=== PATIENT | male | born 2000 | race Caucasian/White ===

== ENCOUNTER 2024-05-23 16:59 | Emergency (ER) | payer SELFPAY ==
--- NOTE | 2024-05-23 17:07 | ERPHSYRPT ---
- History of Present Illness Time Seen by Provider: 05/23/24 17:06 Historian: patient, family Exam Limitations: no limitations Physician History: This is an 23-year-old overweight white male patient who drank a different type of energy drink this morning and later in the morning/early afternoon he began feeling palpitations. He states it is was not chest pain but more of heart racing. He has no known heart disease. He is not short of breath. He has no chest pain now. He has no abdominal pain. He said no nausea vomiting, cough or fever symptoms. Timing/Duration: today Activities at Onset: none Severity of Pain-Max: none Severity of Pain-Current: none Modifying Factors: Improves With: nothing Associated Symptoms: denies symptoms Prior Chest Pain/Cardiac Workup: no prior chest pain Nitro Today/Relief: no nitro taken today Aspirin Treatment Today: 81 mg x 4, provided by ED Allergies/Adverse Reactions: amoxicillin Allergy (Verified 05/23/24 17:03) Home Medications: No Reportable Medications [No Reported Medications] 05/23/24 [History] Travel Risk - International Travel Have you traveled outside of the country in past 3 weeks: No - Emerging Infectious Disease Are you exhibiting symptoms associated with any current EIDs: No - Review of Systems Constitutional: No Symptoms Eyes: No Symptoms Ears, Nose, & Throat: No Symptoms Respiratory: No Symptoms Cardiac: Palpitations, No Chest Pain Abdominal/Gastrointestinal: No Symptoms Genitourinary Symptoms: No Symptoms Musculoskeletal: No Symptoms Skin: No Symptoms Neurological: No Symptoms Psychological: No Symptoms Endocrine: No Symptoms Hematologic/Lymphatic: No Symptoms - Past Medical History Pertinent Past Medical History: No - Past Surgical History Past Surgical History: No - Nursing Vital Signs Nursing Vital Signs: Initial Vital Signs Pulse Rate 85 05/23/24 17:00 Respiratory Rate 19 05/23/24 17:00 Blood Pressure 135/75 05/23/24 17:00 O2 Sat by Pulse Oximetry 96 05/23/24 17:00 Pain Scale Pain Intensity 3 - Physical Exam General Appearance: no apparent distress, alert, anxiety, obese Eye Exam: PERRL/EOMI, eyes nml inspection Ears, Nose, Throat Exam: normal ENT inspection, moist mucous membranes Neck Exam: normal inspection, non-tender, supple, full range of motion Respiratory Exam: normal breath sounds, lungs clear, airway intact, No chest tenderness, No respiratory distress Cardiovascular Exam: regular rate/rhythm, normal heart sounds Gastrointestinal/Abdomen Exam: soft, normal bowel sounds, No tenderness Rectal Exam: not done Back Exam: normal inspection, normal range of motion, No CVA tenderness Extremity Exam: normal inspection, normal range of motion, pelvis stable Neurologic Exam: alert, oriented x 3, cooperative, 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 No comparison EKG) Ordered Tests: Active Orders 24 hr Category Date Time Status Urology Nurse STAT Care 05/23/24 17:08 Active IV Insertion STAT Care 05/23/24 17:07 Active Pulse Oximetry (ED) STAT Care 05/23/24 17:07 Active CHEST 1 VIEW (PORTABLE) Stat Exams 05/23/24 17:07 Taken CBC W DIFF Stat Lab 05/23/24 17:25 Completed CMP Stat Lab 05/23/24 17:25 Completed D-DIMER QUANTITATIVE Stat Lab 05/23/24 17:25 Completed PROTIME WITH INR Stat Lab 05/23/24 17:25 Completed TROPONIN Q4H Lab 05/23/24 17:25 Completed TROPONIN Q4H Lab 05/23/24 21:15 Ordered TROPONIN Q4H Lab 05/24/24 01:15 Ordered Medication Summary Discontinued Medications Generic Name Dose Route Start Last Admin Trade Name Ashwini PRN Reason Stop Dose Admin Aspirin 324 mg 05/23/24 17:07 05/23/24 17:19 Aspirin 81 Mg Tab.Chew PO 05/23/24 17:08 324 mg STAT ONE Administration Aspirin Confirm 05/23/24 17:15 Aspirin 81 Mg Tab.Chew Administered 05/23/24 17:16 Dose 324 mg .ROUTE .STK-MED ONE Lab/Rad Data: Laboratory Result Diagrams 05/23/24 17:25 05/23/24 17:25 Laboratory Results 05/23/24 05/23/24 05/23/24 Range/Units 17:25 17:25 17:25 WBC (4.23-9.07) x10^3/uL RBC (4.63-6.08) x10^6/uL Hgb (13.7-17.5) g/dL Hct (40.1-51.0) % MCV (79.0-92.2) fL MCH (25.7-32.2) pg MCHC (32.3-36.5) g/dL RDW (11.6-14.4) % Plt Count (163-337) x10^3/uL MPV (9.4-12.4) fL Gran % (34.0-67.9) % Immature Gran % (Auto) (0.001-0.429) % Nucleat RBC Rel Count (0.00-0.2) % Eos # (Auto) (0.04-0.54) x10^3/uL Immature Gran # (Auto) (0.001-0.031) x10^3u/L Absolute Lymphs (auto) (1.32-3.57) x10^3/uL Absolute Monos (auto) (0.30-0.82) x10^3/uL Absolute Nucleated RBC (0.00-0.012) x10^3u/L Lymphocytes % (21.8-53.1) % Monocytes % (5.3-12.2) % Eosinophils % (0.8-7.0) % Basophils % (0.2-1.2) % Absolute Granulocytes (1.78-5.38) x10^3/uL Basophils # (0.01-0.08) x10^3/uL PT 10.9 (9.4-12.5) SECONDS INR 1.00 (0.8-3.0) D-Dimer < 0.19 (0.0-0.50) mg/L Sodium 140 (135-145) mmol/L Potassium 4.5 (3.5-5.1) mmol/L Chloride 107 (98-107) mmol/L Carbon Dioxide 21 L (22-30) mmol/L Anion Gap 16.1 H (5-15) MEQ/L BUN 10 (9-20) mg/dL Creatinine 0.90 (0.66-1.25) mg/dL Estimated GFR 122.3 ML/MIN Glucose 126 H (74-106) mg/dL Calcium 10.1 (8.4-10.2) mg/dL Total Bilirubin 0.50 (0.2-1.3) mg/dL AST 45 (17-59) U/L ALT 80 H (0-50) U/L Alkaline Phosphatase 90 (38-126) U/L Troponin I < 0.012 (0.000-0.033) ng/mL Serum Total Protein 8.2 (6.3-8.2) g/dL Albumin 4.8 (3.5-5.0) g/dL 05/23/24 Range/Units 17:25 WBC 9.2 H (4.23-9.07) x10^3/uL RBC 5.65 (4.63-6.08) x10^6/uL Hgb 16.4 (13.7-17.5) g/dL Hct 48.1 (40.1-51.0) % MCV 85.1 (79.0-92.2) fL MCH 29.0 (25.7-32.2) pg MCHC 34.1 (32.3-36.5) g/dL RDW 12.1 (11.6-14.4) % Plt Count 343 H (163-337) x10^3/uL MPV 10.3 (9.4-12.4) fL Gran % 60.1 (34.0-67.9) % Immature Gran % (Auto) 0.3 (0.001-0.429) % Nucleat RBC Rel Count 0.0 (0.00-0.2) % Eos # (Auto) 0.10 (0.04-0.54) x10^3/uL Immature Gran # (Auto) 0.03 (0.001-0.031) x10^3u/L Absolute Lymphs (auto) 2.89 (1.32-3.57) x10^3/uL Absolute Monos (auto) 0.58 (0.30-0.82) x10^3/uL Absolute Nucleated RBC 0.00 (0.00-0.012) x10^3u/L Lymphocytes % 31.4 (21.8-53.1) % Monocytes % 6.3 (5.3-12.2) % Eosinophils % 1.1 (0.8-7.0) % Basophils % 0.8 (0.2-1.2) % Absolute Granulocytes 5.54 H (1.78-5.38) x10^3/uL Basophils # 0.07 (0.01-0.08) x10^3/uL PT (9.4-12.5) SECONDS INR (0.8-3.0) D-Dimer (0.0-0.50) mg/L Sodium (135-145) mmol/L Potassium (3.5-5.1) mmol/L Chloride (98-107) mmol/L Carbon Dioxide (22-30) mmol/L Anion Gap (5-15) MEQ/L BUN (9-20) mg/dL Creatinine (0.66-1.25) mg/dL Estimated GFR ML/MIN Glucose (74-106) mg/dL Calcium (8.4-10.2) mg/dL Total Bilirubin (0.2-1.3) mg/dL AST (17-59) U/L ALT (0-50) U/L Alkaline Phosphatase (38-126) U/L Troponin I (0.000-0.033) ng/mL Serum Total Protein (6.3-8.2) g/dL Albumin (3.5-5.0) g/dL - Progress Progress: improved, re-examined Air Movement: good Progress Note: 05/23/24 18:21 My medical decision making and the assignment of moderate complexity to this patient's medical issue today is based on review of the patient's past medical history, review of the patient's medication list, review of patient drug allergy list, history present illness and physical exam findings. The workup in this patient includes CBC, CMP, troponin level, D-dimer level, chest x-ray, magnesium level, twelve-lead EKG Differential diagnosis includes but is not limited to anxiety about health, musculoskeletal pain, pneumonia, caffeinated drinks side effect, pulmonary embolus, arrhythmia, electrolyte abnormalities Blood Culture(s) Obtained: No Antibiotics given: No Counseled pt/family regarding: lab results, diagnosis, need for follow-up, rad results Medical Desision Making - Diagnostic Testing Diagnostic test were ordered, analyzed, and reviewed by me: Yes Radiological Interpretation: Interpreted by me - Risk of complications Minimal Risk: Minimal risk of morbidity - Departure Departure Disposition: Home Clinical Impression: Anxiety about health, Palpitations, Caffeine adverse reaction Condition: Stable Critical Care Time: No Additional Instructions: Avoid caffeinated products. Drink plenty of clear liquids. Call your primary care provider on 05/26/2024 to make arrangements for further evaluation management and for an evaluation in 3 to 5 days.
[2024-05-23 17:12] VITALS: TEMP 97
[2024-05-23] MEDS ORDERED: BABY ASPIRIN 81 MG CHEW ONE (17:15)
[2024-05-23] MEDS: BABY ASPIRIN 81 MG CHEW PO ONE (17:19)
[2024-05-23 17:32] LABS: Absolute Neutrophil Ct (ANC) 5.54 x10^3/uL (1.78-5.38); BASOPHIL % 0.8 % (0.2-1.2); Basophil (Absolute #) 0.07 x10^3/uL (0.01-0.08); Eosinophil % 1.1 % (0.8-7.0); Hematocrit 48.1 % (40.1-51.0); Hemoglobin 16.4 g/dL (13.7-17.5); IMMATURE GRAN # 0.03 x10^3u/L (0.001-0.031); IMMATURE GRAN % 0.3 % (0.001-0.429); Lymphocyte (Absolute #) 2.89 x10^3/uL (1.32-3.57); Lymphocytes % 31.4 % (21.8-53.1); Mean Cell Volume 85.1 fL (79.0-92.2); Mean Corpuscular Hgb Concent. 34.1 g/dL (32.3-36.5); Mean Platelet Volume 10.3 fL (9.4-12.4); Monocyte (Absolute #) 0.58 x10^3/uL (0.30-0.82); Monocytes % 6.3 % (5.3-12.2); Neutrophil % 60.1 % (34.0-67.9); Platelet Count 343 x10^3/uL (163-337); Red Blood Count 5.65 x10^6/uL (4.63-6.08); Red Cell Distribution Width 12.1 % (11.6-14.4); White Blood Count 9.2 x10^3/uL (4.23-9.07)
[2024-05-23 17:53] LABS: D-DIMER QUANTITATIVE < 0.19 mg/L (0.0-0.50); PROTIME 10.9 SECONDS (9.4-12.5)
[2024-05-23 17:55] LABS: ALBUMIN 4.8 g/dL (3.5-5.0); ANION GAP 16.1 MEQ/L (5-15); BILIRUBIN,TOTAL 0.5 mg/dL (0.2-1.3); Calcium 10.1 mg/dL (8.4-10.2); Creatinine 1 0.9 mg/dL (0.66-1.25); EST GLOMERULAR FILTRATION RATE 122.3 ML/MIN; Potassium 4.5 mmol/L (3.5-5.1); Total Protein 8.2 g/dL (6.3-8.2)
[2024-05-23 18:34] VITALS: BP 118/73; PULSE 80; RESP 18; O2SAT 98
--- NOTE | 2024-05-24 07:58 | XRAY ---
Indication: Chest discomfort. Comparison: March 27, 2023 Portable chest again demonstrates normal heart, lungs, and bony thorax.
== END 2024-05-23 18:35 | disposition home or self-care (01) ==
LOC: ED 16:59
DX: R00.2 Palpitations (principal); F41.9 Anxiety disorder, unspecified; F15.988 Other stimulant use, unspecified with other stimulant-induced disorder
CPT/HCPCS: 36415; 71045; 80053; 84484; 85025; 85379; 85610; 93041; 94760; 99283; A9270-GY

== ENCOUNTER 2024-05-25 15:42 | Emergency (ER) | payer MEDICAID ==
--- NOTE | 2024-05-25 15:56 | ERPHSYRPT ---
- History of Present Illness Time Seen by Provider: 05/25/24 15:56 Source: patient Exam Limitations: no limitations Physician History: This 23-year-old white male who is overweight and was seen by me on 05/23/2024 for complaints of palpitation. Patient had no complaints of chest pain at that time. He presents today with complaints of weakness and intermittent chest di scomfort that is nonradiating and is centrally located. He does not have chest pain at this time. He has never had a diagnosis of coronary artery disease or cardiac disease of any kind. Patient seems very stressed and anxious. 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 When asked, he states he is not nervous or stressed about this. He does not have a primary care provider. Timing/Duration: day(s) (2) Severity: mild Modifying Factors: Improves With: nothing Associated Symptoms: weakness, No abdominal pain, No shortness of breath, No c hest pain, No headaches Allergies/Adverse Reactions: amoxicillin Allergy (Verified 05/25/24 15:50) Home Medications: No Reportable Medications [No Reported Medications] 05/23/24 [History] Hx Influenza Vaccination/Date Given: Yes Hx Pneumococcal Vaccination/Date Given: No Travel Risk - International Travel Have you traveled outside of the country in past 3 weeks: No - Emerging Infectious Disease Are you exhibiting symptoms associated with any current EIDs: No - Review of Systems Constitutional: Weakness Eyes: No Symptoms Ears, Nose, & Throat: No Symptoms Respiratory: No Symptoms Cardiac: No Symptoms Abdominal/Gastrointestinal: No Symptoms Genitourinary Symptoms: No Symptoms Musculoskeletal: No Symptoms Skin: No Symptoms Neurological: No Symptoms Psychological: No Symptoms Endocrine: No Symptoms Hematologic/Lymphatic: No Symptoms Immunological/Allergic: No Symptoms All Other Systems: Reviewed and Negative - Past Medical History Pertinent Past Medical History: No - Past Surgical History Past Surgical History: No - Social History Smoking Status: Current some day smoker Exposure to second hand smoke: No Drug Use: none - Social Determinants of Health Will the patient participate in the screening: Declined to provide - Nursing Vital Signs Nursing Vital Signs: Initial Vital Signs Temperature 97.9 F 05/25/24 15:52 Pulse Rate 89 05/25/24 15:52 Respiratory Rate 20 05/25/24 15:52 Blood Pressure 137/84 05/25/24 15:52 O2 Sat by Pulse Oximetry 95 06/30/24 15:52 Pain Scale Pain Intensity 0 - Physical Exam General Appearance: no apparent distress, alert, anxiety, obese Eye Exam: PERRL/EOMI, eyes nml inspection Ears, Nose, Throat Exam: normal ENT inspection, moist mucous membranes Neck Exam: normal inspection, non-tender, supple, full range of motion Respiratory Exam: normal breath sounds, lungs clear, airway intact, No chest tenderness, No respiratory distress Cardiovascular Exam: regular rate/rhythm, normal heart sounds, normal peripheral pulses Gastrointestinal/Abdomen Exam: soft, normal bowel sounds, No tenderness Rectal Exam: not done Back Exam: normal inspection, normal range of motion, No CVA tenderness, No vertebral tenderness Extremity Exam: normal inspection, normal range of motion, pelvis stable Neurologic Exam: alert, oriented x 3, cooperative, 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 No acute ischemia on today's twelve-lead EKG. N o change from the twelve-lead EKG that was performed on 05/23/2024) Ordered Tests: Active Orders 24 hr Category Date Time Status EKG-ER Only STAT Care 05/25/24 16:16 Active Pulse Oximetry (ED) STAT Care 05/25/24 16:16 Active CBC W DIFF Stat Lab 05/25/24 16:32 Completed CMP Stat Lab 05/25/24 16:32 Completed MAGNESIUM Stat Lab 05/25/24 16:32 Completed MONO SCREEN Stat Lab 05/25/24 16:32 Completed TROPONIN Q4H Lab 05/25/24 16:32 Completed TROPONIN Q4H Lab 05/25/24 20:30 Ordered TROPONIN Q4H Lab 05/26/24 00:30 Ordered TSH, 3RD Generation Stat Lab 05/25/24 16:32 Completed UA W/RFX UR CULTURE Stat Lab 05/25/24 16:18 Completed Lab/Rad Data: Laboratory Result Diagrams 05/25/24 16:32 05/25/24 16:32 Laboratory Results 0605/25/24 05/25/24 Range/Units 16:33 16:32 16:32 WBC (4.23-9.07) x10^3/uL RBC (4.63-6.08) x10^6/uL Hgb (13.7-17.5) g/dL Hct (40.1-51.0) % MCV (79.0-92.2) fL MCH (25.7-32.2) pg MCHC (32.3-36.5) g/dL RDW (11.6-14.4) % Plt Count (163-337) x10^3/uL MPV (9.4-12.4) fL Gran % (34.0-67.9) % Immature Gran % (Auto) (0.001-0.429) % Nucleat RBC Rel Count (0.00-0.2) % Eos # (Auto) (0.04-0.54) x10^3/uL Immature Gran # (Auto) (0.001-0.031) x10^3u/L Absolute Lymphs (auto) (1.32-3.57) x10^3/uL Absolute Monos (auto) (0.30-0.82) x10^3/uL Absolute Nucleated RBC (0.00-0.012) x10^3u/L Lymphocytes % (21.8-53.1) % Monocytes % (5.3-12.2) % Eosinophils % (0.8-7.0) % Basophils % (0.2-1.2) % Absolute Granulocytes (1.78-5.38) x10^3/uL Basophils # (0.01-0.08) x10^3/uL Sodium (135-145) mmol/L Potassium (3.5-5.1) mmol/L Chloride (98-107) mmol/L Carbon Dioxide (22-30) mmol/L Anion Gap (5-15) MEQ/L BUN (9-20) mg/dL Creatinine (0.66-1.25) mg/dL Estimated GFR ML/MIN Glucose (74-106) mg/dL Calcium (8.4-10.2) mg/dL Magnesium (1.6-2.3) mg/dL Total Bilirubin (0.2-1.3) mg/dL AST (17-59) U/L ALT (0-50) U/L Alkaline Phosphatase (38-126) U/L Troponin I (0.000-0.033) ng/mL Serum Total Protein (6.3-8.2) g/dL Albumin (3.5-5.0) g/dL Free T4 0.98 (0.78-2.19) ng/dL TSH 3rd Generation (0.470-4.680) mIU/L Urine Color (Yellow) Urine Appearance (Clear) Urine pH (4.6-8.0) Ur Specific [place] (1.005-1.030) Urine Protein (Negative) Urine Glucose (UA) (Negative) mg/dL Urine Ketones (Negative) Urine Blood (Negative) Urine Nitrite (Negative) Urine Bilirubin (Negative) Urine Urobilinogen (0.2) mg/dL Ur Leukocyte Esterase (Negative) U Hyaline Cast (Auto) (0-2) /LPF Urine Microscopic RBC (0-5) /HPF Urine Microscopic WBC (0-5) /HPF Ur Epithelial Cells (None Seen) /HPF Urine Bacteria (None Seen) /HPF Urine Culture Reflexed (NO) Monoscreen NEGATIVE (NEGATIVE) Influenza Type A Ag NEGATIVE (NEGATIVE) Influenza Type B Ag NEGATIVE (NEGATIVE) RSV (PCR) NEGATIVE (NEGATIVE) SARS-CoV-2 (PCR) NEGATIVE (NEGATIVE) 05/25/24 05/25/24 05/25/24 Range/Units 16:32 16:32 16:32 WBC 7.8 (4.23-9.07) x10^3/uL RBC 5.28 (4.63-6.08) x10^6/uL Hgb 15.5 (13.7-17.5) g/dL Hct 45.2 (40.1-51.0) % MCV 85.6 (79.0-92.2) fL MCH 29.4 (25.7-32.2) pg MCHC 34.3 (32.3-36.5) g/dL RDW 12.1 (11.6-14.4) % Plt Count 288 (163-337) x10^3/uL MPV 10.3 (9.4-12.4) fL Gran % 54.3 (34.0-67.9) % Immature Gran % (Auto) 0.3 (0.001-0.429) % Nucleat RBC Rel Count 0.0 (0.00-0.2) % Eos # (Auto) 0.15 (0.04-0.54) x10^3/uL Immature Gran # (Auto) 0.02 (0.001-0.031) x10^3u/L Absolute Lymphs (auto) 2.79 (1.32-3.57) x10^3/uL Absolute Monos (auto) 0.56 (0.30-0.82) x10^3/uL Absolute Nucleated RBC 0.00 (0.00-0.012) x10^3u/L Lymphocytes % 35.7 (21.8-53.1) % Monocytes % 7.2 (5.3-12.2) % Eosinophils % 1.9 (0.8-7.0) % Basophils % 0.6 (0.2-1.2) % Absolute Granulocytes 4.25 (1.78-5.38) x10^3/uL Basophils # 0.05 (0.01-0.08) x10^3/uL Sodium 139 (135-145) mmol/L Potassium 4.3 (3.5-5.1) mmol/L Chloride 107 (98-107) mmol/L Carbon Dioxide 23 (22-30) mmol/L Anion Gap 13.1 (5-15) MEQ/L BUN 11 (9-20) mg/dL Creatinine 0.86 (0.66-1.25) mg/dL Estimated GFR 124.0 ML/MIN Glucose 134 H (74-106) mg/dL Calcium 9.8 (8.4-10.2) mg/dL Magnesium 2.1 (1.6-2.3) mg/dL Total Bilirubin 0.40 (0.2-1.3) mg/dL AST 40 (17-59) U/L ALT 73 H (0-50) U/L Alkaline Phosphatase 72 (38-126) U/L Troponin I < 0.012 (0.000-0.033) ng/mL Serum Total Protein 7.4 (6.3-8.2) g/dL Albumin 4.5 (3.5-5.0) g/dL Free T4 (0.78-2.19) ng/dL TSH 3rd Generation 1.950 (0.470-4.680) mIU/L Urine Color (Yellow) Urine Appearance (Clear) Urine pH (4.6-8.0) Ur Specific [place] (1.005-1.030) Urine Protein (Negative) Urine Glucose (UA) (Negative) mg/dL Urine Ketones (Negative) Urine Blood (Negative) Urine Nitrite (Negative) Urine Bilirubin (Negative) Urine Urobilinogen (0.2) mg/dL Ur Leukocyte Esterase (Negative) U Hyaline Cast (Auto) (0-2) /LPF Urine Microscopic RBC (0-5) /HPF Urine Microscopic WBC (0-5) /HPF Ur Epithelial Cells (None Seen) /HPF Urine Bacteria (None Seen) /HPF Urine Culture Reflexed (NO) Monoscreen (NEGATIVE) Influenza Type A Ag (NEGATIVE) Influenza Type B Ag (NEGATIVE) RSV (PCR) (NEGATIVE) SARS-CoV-2 (PCR) (NEGATIVE) 05/25/24 Range/Units 16:18 WBC (4.23-9.07) x10^3/uL RBC (4.63-6.08) x10^6/uL Hgb (13.7-17.5) g/dL Hct (40.1-51.0) % MCV (79.0-92.2) fL MCH (25.7-32.2) pg MCHC (32.3-36.5) g/dL RDW (11.6-14.4) % Plt Count (163-337) x10^3/uL MPV (9.4-12.4) fL Gran % (34.0-67.9) % Immature Gran % (Auto) (0.001-0.429) % Nucleat RBC Rel Count (0.00-0.2) % Eos # (Auto) (0.04-0.54) x10^3/uL Immature Gran # (Auto) (0.001-0.031) x10^3u/L Absolute Lymphs (auto) (1.32-3.57) x10^3/uL Absolute Monos (auto) (0.30-0.82) x10^3/uL Absolute Nucleated RBC (0.00-0.012) x10^3u/L Lymphocytes % (21.8-53.1) % Monocytes % (5.3-12.2) % Eosinophils % (0.8-7.0) % Basophils % (0.2-1.2) % Absolute Granulocytes (1.78-5.38) x10^3/uL Basophils # (0.01-0.08) x10^3/uL Sodium (135-145) mmol/L Potassium (3.5-5.1) mmol/L Chloride (98-107) mmol/L Carbon Dioxide (22-30) mmol/L Anion Gap (5-15) MEQ/L BUN (9-20) mg/dL Creatinine (0.66-1.25) mg/dL Estimated GFR ML/MIN Glucose (74-106) mg/dL Calcium (8.4-10.2) mg/dL Magnesium (1.6-2.3) mg/dL Total Bilirubin (0.2-1.3) mg/dL AST (17-59) U/L ALT (0-50) U/L Alkaline Phosphatase (38-126) U/L Troponin I (0.000-0.033) ng/mL Serum Total Protein (6.3-8.2) g/dL Albumin (3.5-5.0) g/dL Free T4 (0.78-2.19) ng/dL TSH 3rd Generation (0.470-4.680) mIU/L Urine Color Yellow (Yellow) Urine Appearance Clear (Clear) Urine pH 7.5 (4.6-8.0) Ur Specific [place] <=1.005 (1.005-1.030) Urine Protein Negative (Negative) Urine Glucose (UA) Negative (Negative) mg/dL Urine Ketones Negative (Negative) Urine Blood Negative (Negative) Urine Nitrite Negative (Negative) Urine Bilirubin Negative (Negative) Urine Urobilinogen 0.2 (0.2) mg/dL Ur Leukocyte Esterase Negative (Negative) U Hyaline Cast (Auto) NONE SEEN (0-2) /LPF Urine Microscopic RBC 0-2 (0-5) /HPF Urine Microscopic WBC 0-2 (0-5) /HPF Ur Epithelial Cells None Seen (None Seen) /HPF Urine Bacteria None Seen (None Seen) /HPF Urine Culture Reflexed NO (NO) Monoscreen (NEGATIVE) Influenza Type A Ag (NEGATIVE) Influenza Type B Ag (NEGATIVE) RSV (PCR) (NEGATIVE) SARS-CoV-2 (PCR) (NEGATIVE) - Progress Progress: improved, re-examined Progress Note: 05/25/24 16:19 My medical decision making and the assignment of moderate complexity to this patient's medical issue today is based on review of the patient's past medical history, review of the patient's medication list, review of patient drug allergy list, history present illness and physical findings on examination. The workup in this patient includes CBC, CMP, troponin level, magnesium level, urinalysis, twelve-lead EKG, T4, TSH levels Differential diagnosis includes but is not limited to arrhythmia, electrolyte abnormalities, dehydration, urinary tract infection, myocardial infarction, anxiety about health. 05/25/24 17:26 I interpreted the patient's laboratory data results. Based on the patient's laboratory data results, there are no acute, emergent medical issues. 05/25/24 18:20 Counseled pt/family regarding: lab results, diagnosis, need for follow-up Medical Desision Making - Diagnostic Testing Diagnostic test were ordered, analyzed, and reviewed by me: Yes - Risk of complications Minimal Risk: Minimal risk of morbidity - Departure Departure Disposition: Home Clinical Impression: Weakness, Anxiety about health Condition: Stable Critical Care Time: No Referrals: DOCTOR,NO FAMILY [Primary Care Provider] - Follow up/PCP as directed Additional Instructions: Drink plenty of fluids. Call a primary care provider from the list we provided you tomorrow, 05/26/2024, to make arrangements for follow-up appointment to be seen in the next 3 to 5 days.
[2024-05-25 15:58] VITALS: BP 137/84; PULSE 89; RESP 20; TEMP 97.9
[2024-05-25 16:20] VITALS: O2SAT 96
[2024-05-25 16:34] LABS: Absolute Neutrophil Ct (ANC) 4.25 x10^3/uL (1.78-5.38); BASOPHIL % 0.6 % (0.2-1.2); Basophil (Absolute #) 0.05 x10^3/uL (0.01-0.08); Eosinophil % 1.9 % (0.8-7.0); Eosinophil (Absolute #) 0.15 x10^3/uL (0.04-0.54); Hematocrit 45.2 % (40.1-51.0); Hemoglobin 15.5 g/dL (13.7-17.5); IMMATURE GRAN # 0.02 x10^3u/L (0.001-0.031); IMMATURE GRAN % 0.3 % (0.001-0.429); Lymphocyte (Absolute #) 2.79 x10^3/uL (1.32-3.57); Lymphocytes % 35.7 % (21.8-53.1); Mean Cell Volume 85.6 fL (79.0-92.2); Mean Corpuscular Hemoglobin 29.4 pg (25.7-32.2); Mean Corpuscular Hgb Concent. 34.3 g/dL (32.3-36.5); Mean Platelet Volume 10.3 fL (9.4-12.4); Monocyte (Absolute #) 0.56 x10^3/uL (0.30-0.82); Monocytes % 7.2 % (5.3-12.2); Neutrophil % 54.3 % (34.0-67.9); Platelet Count 288 x10^3/uL (163-337); Red Blood Count 5.28 x10^6/uL (4.63-6.08); Red Cell Distribution Width 12.1 % (11.6-14.4); White Blood Count 7.8 x10^3/uL (4.23-9.07)
[2024-05-25 16:43] LABS: Appearance Clear (Clear); Bacteria None Seen /HPF (None Seen); Bilirubin Negative (Negative); Blood Negative (Negative); Epithelial Cells None Seen /HPF (None Seen); Glucose, Urine Negative (Negative); Hyaline Casts NONE SEEN /LPF (0-2); Ketones Negative (Negative); Leukocyte Esterase Negative (Negative); Nitrite Negative (Negative); Ph 7.5 (4.6-8.0); Protein,Urine Dip Negative (Negative); RBC 0-2 /HPF (0-5); Specific Gravity <=1.005 (1.005-1.030); Urobilinogen 0.2 mg/dL (0.2); WBC 0-2 /HPF (0-5)
[2024-05-25 16:45] LABS: ADD URINE CULTURE? NO (NO)
[2024-05-25 17:14] LABS: INFLUENZA A NEGATIVE (NEGATIVE); INFLUENZA B NEGATIVE (NEGATIVE); RESPIRATORY SYNCTIAL VIRUS NEGATIVE (NEGATIVE); SARS-CoV-2 Xpert Express NEGATIVE (NEGATIVE)
[2024-05-25 17:17] LABS: ALBUMIN 4.5 g/dL (3.5-5.0); ANION GAP 13.1 MEQ/L (5-15); BILIRUBIN,TOTAL 0.4 mg/dL (0.2-1.3); Calcium 9.8 mg/dL (8.4-10.2); Creatinine 1 0.86 mg/dL (0.66-1.25); MAGNESIUM 2.1 mg/dL (1.6-2.3); Potassium 4.3 mmol/L (3.5-5.1); TSH, 3RD Generation 1.95 mIU/L (0.470-4.680); Total Protein 7.4 g/dL (6.3-8.2)
== END 2024-05-25 18:47 | disposition home or self-care (01) ==
LOC: ED 15:42
DX: R53.1 Weakness (principal); F45.9 Somatoform disorder, unspecified; R07.9 Chest pain, unspecified; Z72.0 Tobacco use
CPT/HCPCS: 0241U; 36415; 80053; 81001; 83735; 84439; 84443; 84484; 85025; 86308; 93005; 94760; 99283

== ENCOUNTER 2024-06-15 22:35 | Emergency (ER) | payer MEDICAID ==
[2024-06-15 22:56] VITALS: TEMP 98.4; O2SAT 97
--- NOTE | 2024-06-15 23:12 | ERPHSYRPT ---
- History of Present Illness Time Seen by Provider: 06/15/24 22:38 Source: patient Exam Limitations: no limitations Patient Subjective Stated Complaint: pt states his mother try to pop a pimple and nothing came out Triage Nursing Assessment: pt ambulated into the er; pt is axo x4; c/o pustule to left middle back; pt denies pain; raised area measures 2 cm in diameter; raised area is pink and warm; no respiratory distress present; hypertensive ta chycardic Physician History: 23-year-old healthy male presented in the ER with complaint of right upper back small swelling which he noticed earlier. Patient reported his mom tried to squeeze it but some yellow to clear liquid came out. Has been complaining of mild dull aching pain. No fever or chills reported. 2 cm swelling in right posterior back on scapular area skin. Soft to firm consistency. Minimal tenderness. No discharge. I believe patient has infected sebaceous cyst, will place him on antibiotics and outpatient follow-up recommended for reevaluation once infection is resolved and may be excised. Discussed signs symptoms of worsening needing return to ER which he seems understanding. Stable for discharge. Allergies/Adverse Reactions: amoxicillin Allergy (Verified 06/15/24 22:41) Hx Tetanus, Diphtheria Vaccination/Date Given: No Hx Influenza Vaccination/Date Given: Yes Hx Pneumococcal Vaccination/Date Given: No Immunizations Up to Date: No Travel Risk - International Travel Have you traveled outside of the country in past 3 weeks: No - Emerging Infectious Disease Are you exhibiting symptoms associated with any current EIDs: No - Review of Systems Constitutional: No Symptoms Respiratory: No Symptoms Cardiac: No Symptoms Abdominal/Gastrointestinal: No Symptoms Genitourinary Symptoms: No Symptoms Musculoskeletal: No Symptoms Skin: Cellulitis, Skin Lesions Neurological: No Symptoms Psychological: No Symptoms Endocrine: No Symptoms Hematologic/Lymphatic: No Symptoms - Past Medical History Pertinent Past Medical History: No - Past Surgical History Past Surgical History: No - Social History Smoking Status: Current some day smoker Exposure to second hand smoke: No Drug Use: none - Social Determinants of Health Will the patient participate in the screening: Yes Do you worry about a steady place to live?: No Do you have any problems with any of the following?: No known problems In the past 12 months,have you had to go without utilities?: No Transportation Issues: No Has anyone in your support network made you feel unsafe?: No Have you or anyone in your house had to go without enough: No - Nursing Vital Signs Nursing Vital Signs: Initial Vital Signs Temperature 98.4 F 06/15/24 22:36 Pulse Rate 94 H 06/15/24 22:36 Respiratory Rate 16 06/15/24 22:36 Blood Pressure 145/80 06/15/24 22:36 O2 Sat by Pulse Oximetry 97 06/15/24 22:36 Pain Scale Pain Intensity 0 - Physical Exam General Appearance: no apparent distress Eye Exam: PERRL/EOMI Neck Exam: normal inspection, full range of motion Respiratory Exam: normal breath sounds, lungs clear Cardiovascular Exam: regular rate/rhythm, normal heart sounds Back Exam: normal inspection, other Extremity Exam: normal inspection, normal range of motion Neurologic Exam: alert, oriented x 3, cooperative Skin Exam: normal color, other (Cyst right upper back) SpO2 Interpretation: normal SpO2: 97 O2 Delivery: Room Air - Progress Progress Note: 06/15/24 23:10 23-year-old healthy male presented in the ER with complaint of right upper back small swelling which he noticed earlier. Patient reported his mom tried to squeeze it but some yellow to clear liquid came out. Has been complaining of mild dull aching pain. No fever or chills reported. 2 cm swelling in right posterior back on scapular area skin. Soft to firm consistency. Minimal tenderness. No discharge. Offered pain medication but he does not want it. I believe patient has infected sebaceous cyst, will place him on antibiotics and outpatient follow-up recommended for reevaluation once infection is resolved and may be excised. Discussed signs symptoms of worsening needing return to ER which he seems understanding. Stable for discharge. 06/15/24 23:10 Counseled pt/family regarding: diagnosis, need for follow-up Medical Desision Making - Diagnostic Testing Diagnostic test were ordered, analyzed, and reviewed by me: No - Risk of complications The pt has a mod risk of morbidity or mortality based on: Need for prescription drug management - Departure Departure Disposition: Home Clinical Impression: Infected sebaceous cyst of skin Condition: Stable Critical Care Time: No Referrals: ROLF PRICE MD [ACTIVE STAFF] - Follow up/PCP as directed (Call for appointment) Instructions: Epidermal Cyst (DC) Additional Instructions: Take Tylenol/ibuprofen as needed. Follow-up with primary care for reevaluation. Return to ER for increased swelling pain discharge or if develop fever chills etc. Prescriptions: Smz/Tmp Ds Tablet [Bactrim Ds Tablet] 1 udtab PO BID #14 tablet
[2024-06-15] MEDS ORDERED: BACTRIM DS TABLET PO ONE (23:27)
[2024-06-15] MEDS: BACTRIM DS TABLET PO STA (23:28)
[2024-06-15 23:35] VITALS: BP 135/88; PULSE 87; RESP 18
== END 2024-06-15 23:35 | disposition home or self-care (01) ==
LOC: ED 22:35
DX: L72.3 Sebaceous cyst (principal); B99.8 Other infectious disease; Z72.0 Tobacco use
CPT/HCPCS: 99281; A9270-GY

== ENCOUNTER 2024-06-21 07:43 | Emergency (ER) | payer MEDICAID ==
--- NOTE | 2024-06-21 08:02 | ERPHSYRPT ---
- History of Present Illness Time Seen by Provider: 06/21/24 07:56 Source: patient Exam Limitations: no limitations Physician History: Pt was seen before in ER and started on septr but was too early to drain and this has since enlarged. No N or V, No fever, mild tenderness with erythema. fluctuant 2 cm cyst right upper posterior back. Normal mental status. no nodes. Discussed risks/benefits of I and D with pt and continuing AB, adding Bactroban and he wishes to proceed. Timing/Duration: day(s), worse Quality: painful Severity: mild Location: torso Possible Causes: other (appears like sebacious cyst) Associated Symptoms: denies symptoms Allergies/Adverse Reactions: amoxicillin Allergy (Verified 06/21/24 07:55) Hx Tetanus, Diphtheria Vaccination/Date Given: No Hx Influenza Vaccination/Date Given: Yes Hx Pneumococcal Vaccination/Date Given: No Travel Risk - Emerging Infectious Disease Are you exhibiting symptoms associated with any current EIDs: No - Review of Systems Constitutional: No Fever, No Chills Eyes: No Symptoms Ears, Nose, & Throat: No Symptoms Respiratory: No Cough, No Dyspnea Cardiac: No Chest Pain, No Edema, No Syncope Abdominal/Gastrointestinal: No Abdominal Pain, No Nausea, No Vomiting, No Diarrhea Genitourinary Symptoms: No Dysuria Musculoskeletal: No Back Pain, No Neck Pain Skin: Other (abscess right posterior thorax), No Rash Neurological: No Dizziness, No Focal Weakness, No Sensory Changes Psychological: No Symptoms Endocrine: No Symptoms Hematologic/Lymphatic: No Symptoms All Other Systems: Reviewed and Negative - Past Medical History Pertinent Past Medical History: No - Past Surgical History Past Surgical History: No - Social History Smoking Status: Current some day smoker Exposure to second hand smoke: No Drug Use: none - Social Determinants of Health Will the patient participate in the screening: Yes Do you worry about a steady place to live?: No In the past 12 months,have you had to go without utilities?: No Transportation Issues: No Has anyone in your support network made you feel unsafe?: No Have you or anyone in your house had to go without enough: No - Physical Exam General Appearance: no apparent distress, alert Eye Exam: PERRL/EOMI, eyes nml inspection Ears, Nose, Throat Exam: normal ENT inspection, pharynx normal, moist mucous membranes Neck Exam: normal inspection, non-tender, supple, full range of motion Respiratory Exam: normal breath sounds, lungs clear, No respiratory distress Cardiovascular Exam: regular rate/rhythm, normal heart sounds Gastrointestinal/Abdomen Exam: soft, mass, No tenderness Rectal Exam: deferred Back Exam: normal inspection, normal range of motion, No CVA tenderness, No vertebral tenderness Extremity Exam: normal inspection, normal range of motion Neurologic Exam: alert, oriented x 3, cooperative, normal mood/affect, sensation nml, No motor deficits Skin Exam: normal color, warm, dry, other (infected cyst right upper posterior t horax 2 cm and erythematous) SpO2 Interpretation: normal SpO2: 97 O2 Delivery: Room Air Procedures - Incision and Drainage Time of Procedure: 08:05 Site: right upper posterior thorax/back Anesthesia: 1% Lidocaine cc's of anesthesia: 2 Blade Size: 11 I & D Procedure: betadine prep, sterile drapes applied, sterile dressing applied , gauze wick placed Results: other (sebacious material drained) - Course Nursing assessment & vital signs reviewed: Yes - Progress Progress: improved, re-examined Progress Note: 06/21/24 08:18 sevarl ccs of lisa fluid and pus drained from cyst. Pt advised that this may recur and need to be fully excised if that happens. F/U PMD for wound check this week. 06/21/24 08:25 pt reports tetanus UTD Counseled pt/family regarding: diagnosis, need for follow-up Medical Desision Making - Discussion of managment Reviewed:: Need for additional workup Agreed on:: Treatment plan, need for follow-up - Diagnostic Testing Diagnostic test were ordered, analyzed, and reviewed by me: No - Risk of complications The pt has a mod risk of morbidity or mortality based on: Need for prescription drug management - Departure Departure Disposition: Home Clinical Impression: Infected sebaceous cyst of skin Condition: Good Critical Care Time: No Instructions: Wound Infection, Epidermal Cyst, Abscess Incision and Drainage ED Additional Instructions: Follow-up with your Dr. this week to recheck, return meantime if it recurs , increased pain or redness. Expect drainage for a few days. May shower but then use bactroban ointment and fresh bandage each time. Finish antibiotics. The cyst may recur and require excision later or may resolve after this drainage. Prescriptions: Mupirocin [Bactroban OINTMENT] 22 gm TP BID 10 Days #1 cartridge
[2024-06-21 08:05] VITALS: BP 130/87; PULSE 80; RESP 13; TEMP 96.8; O2SAT 97
[2024-06-21] MEDS ORDERED: XYLOCAINE 1% HCL 20 ML MDV ONE (08:05)
[2024-06-21] MEDS: XYLOCAINE 1% HCL 20 ML MDV IJ ONE (08:20)
[2024-06-21] MEDS ORDERED: BACIGUENT PACKET ONE (08:21)
[2024-06-21] MEDS: BACIGUENT PACKET TP ONE (08:24)
== END 2024-06-21 08:37 | disposition home or self-care (01) ==
LOC: ED 07:43
DX: L72.3 Sebaceous cyst (principal); B99.8 Other infectious disease; Z72.0 Tobacco use
CPT/HCPCS: 10060; 96372; 99283; A9270-GY

== ENCOUNTER 2024-11-16 00:07 | Emergency (ER) | payer MEDICAID ==
[2024-11-16] MEDS ORDERED: Sodium Chloride 0.9% 1000 ML 1,000 ML ONE (00:27)
[2024-11-16] MEDS ORDERED: Zofran 4 MG/2 ML VIAL ONE (00:27)
[2024-11-16] MEDS: Zofran 4 MG/2 ML VIAL IV ONE (00:29)
[2024-11-16] MEDS: Sodium Chloride 0.9% 1000 ML 1,000 ML IV STA (00:29)
[2024-11-16] MEDS ORDERED: Pepcid 20 MG VIAL IV ONE (00:30)
[2024-11-16] MEDS: Pepcid 20 MG VIAL IV ONE (00:31)
[2024-11-16 00:41] LABS: BASOPHIL % 0.2 % (0.2-1.2); Basophil (Absolute #) 0.04 x10^3/uL (0.01-0.08); Eosinophil % 0.7 % (0.8-7.0); Eosinophil (Absolute #) 0.11 x10^3/uL (0.04-0.54); Hematocrit 47.9 % (40.1-51.0); Hemoglobin 16.2 g/dL (13.7-17.5); IMMATURE GRAN # 0.04 x10^3u/L (0.001-0.031); IMMATURE GRAN % 0.2 % (0.001-0.429); Lymphocytes % 13.3 % (21.8-53.1); Mean Cell Volume 84.8 fL (79.0-92.2); Mean Corpuscular Hemoglobin 28.7 pg (25.7-32.2); Mean Corpuscular Hgb Concent. 33.8 g/dL (32.3-36.5); Mean Platelet Volume 10.3 fL (9.4-12.4); Monocyte (Absolute #) 0.83 x10^3/uL (0.30-0.82); Neutrophil % 80.6 % (34.0-67.9); Platelet Count 313 x10^3/uL (163-337); Red Blood Count 5.65 x10^6/uL (4.63-6.08); Red Cell Distribution Width 12.5 % (11.6-14.4); White Blood Count 16.5 x10^3/uL (4.23-9.07)
[2024-11-16 00:43] VITALS: RESP 20; TEMP 95.9
--- NOTE | 2024-11-16 00:47 | ERPHSYRPT ---
- History of Present Illness Time Seen by Provider: 11/16/24 00:18 Historian: patient Exam Limitations: no limitations Patient Subjective Stated Complaint: pt states that he has been vomiting and having diarrhea since 9 pm Triage Nursing Assessment: pt ambulated into the er; pt is axo x4; c/o vomiting; pt states 8/10 pain to abd; abd round, soft, tender; active bowel sounds in all quads; c/o N/V/D; skin pale, warm, dry; no respiratory distress present; tachycardic Physician History: 43-year-old male presented in the ER with complains of sudden onset nausea vomiting with abdominal pain and diarrhea since 9 PM. Patient reports multiple episodes of nonprojectile, nonbilious vomiting without hematemesis.. Also hav ing multiple loose stools with no hematochezia. Reports cramping in the abdomen generalized, aggravated with nausea and vomiting. Patient denies any fever or chills. Feels weak fatigued tired and dehydrated. Allergies/Adverse Reactions: amoxicillin Allergy (Verified 11/16/24 00:16) Hx Tetanus, Diphtheria Vaccination/Date Given: No Hx Influenza Vaccination/Date Given: No Hx Pneumococcal Vaccination/Date Given: No Travel Risk - International Travel Have you traveled outside of the country in past 3 weeks: No - Emerging Infectious Disease Are you exhibiting symptoms associated with any current EIDs: Yes Symptoms: Abdominal Pain, Diarrhea, Vomitting - Review of Systems Constitutional: Fatigue, Weakness Eyes: No Symptoms Ears, Nose, & Throat: No Symptoms Respiratory: No Symptoms Cardiac: No Symptoms Abdominal/Gastrointestinal: Abdominal Pain, Nausea, Vomiting, Diarrhea Genitourinary Symptoms: No Symptoms Musculoskeletal: Myalgias Skin: No Symptoms Neurological: No Symptoms Endocrine: No Symptoms Hematologic/Lymphatic: No Symptoms - Past Medical History Pertinent Past Medical History: No - Past Surgical History Past Surgical History: No - Social History Smoking Status: Smoker, status unknown Exposure to second hand smoke: No Drug Use: none - Social Determinants of Health Will the patient participate in the screening: Yes Do you worry about a steady place to live?: No Do you have any problems with any of the following?: No known problems In the past 12 months,have you had to go without utilities?: No Transportation Issues: No Has anyone in your support network made you feel unsafe?: No Have you or anyone in your house had to go without enough: No - Nursing Vital Signs Nursing Vital Signs: Initial Vital Signs Temperature 95.9 F 11/16/24 00:20 Pulse Rate 110 H 11/16/24 00:20 Respiratory Rate 20 11/16/24 00:20 Blood Pressure 129/85 11/16/24 00:20 O2 Sat by Pulse Oximetry 98 11/16/24 00:20 Pain Scale Pain Intensity 8 - Physical Exam General Appearance: no apparent distress, alert Eye Exam: PERRL/EOMI Ears, Nose, Throat Exam: normal ENT inspection Neck Exam: normal inspection, supple, full range of motion Respiratory Exam: normal breath sounds, lungs clear Cardiovascular Exam: normal heart sounds, tachycardia Gastrointestinal/Abdomen Exam: soft, normal bowel sounds, tenderness (Mild generalized tenderness with no guarding or rebound) Back Exam: normal inspection, normal range of motion Extremity Exam: normal inspection, normal range of motion, pelvis stable Neurologic Exam: alert, oriented x 3, cooperative Skin Exam: normal color SpO2 Interpretation: normal SpO2: 98 O2 Delivery: Room Air Ordered Tests: Active Orders 24 hr Category Date Time Status CBC W DIFF Stat Lab 11/16/24 00:39 Completed CMP Stat Lab 11/16/24 00:39 Completed LIPASE Stat Lab 11/16/24 00:39 Completed UA W/RFX UR CULTURE Stat Lab 11/16/24 00:26 Ordered Medication Summary Generic Name Dose Route Start Last Admin Trade Name Freq PRN Reason Stop Dose Admin Sodium Chloride 1,000 mls @ 999 mls/hr 11/16/24 00:26 11/16/24 00:29 Sodium Chloride 0.9% 1000 Ml IV 11/16/24 01:26 999 mls/hr .Q1H1M STA Administration Discontinued Medications Generic Name Dose Route Start Last Admin Trade Name Freq PRN Reason Stop Dose Admin Famotidine 20 mg 11/16/24 00:26 11/16/24 00:31 Famotidine 20 Mg/1 Vial IV 11/16/24 00:27 20 mg STAT ONE Administration Famotidine Confirm 11/16/24 00:30 Famotidine 20 Mg/1 Vial Administered 11/16/24 00:31 Dose 20 mg IV .STK-MED ONE Sodium Chloride Confirm 11/16/24 00:27 Sodium Chloride 0.9% 1000 Ml Administered 11/16/24 00:28 Dose 1,000 mls @ ud .ROUTE .STK-MED ONE Ondansetron HCl 4 mg 11/16/24 00:26 11/16/24 00:29 Ondansetron Hcl 4 Mg/2 Ml Vial IV 11/16/24 00:27 4 mg STAT ONE Administration Ondansetron HCl Confirm 11/16/24 00:27 Ondansetron Hcl 4 Mg/2 Ml Vial Administered 11/16/24 00:28 Dose 4 mg .ROUTE .STK-MED ONE Ondansetron HCl 4 mg 11/16/24 01:06 Zofran 4 Mg/Udtablet Orally Disintegrating PO 11/16/24 01:07 STAT ONE Lab/Rad Data: Laboratory Result Diagrams 11/16/24 00:39 11/16/24 00:39 Laboratory Results 11/16/24 11/16/24 Range/Units 00:39 00:39 WBC 16.5 H (4.23-9.07) x10^3/uL RBC 5.65 (4.63-6.08) x10^6/uL Hgb 16.2 (13.7-17.5) g/dL Hct 47.9 (40.1-51.0) % MCV 84.8 (79.0-92.2) fL MCH 28.7 (25.7-32.2) pg MCHC 33.8 (32.3-36.5) g/dL RDW 12.5 (11.6-14.4) % Plt Count 313 (163-337) x10^3/uL MPV 10.3 (9.4-12.4) fL Gran % 80.6 H (34.0-67.9) % Immature Gran % (Auto) 0.2 (0.001-0.429) % Nucleat RBC Rel Count 0.0 (0.00-0.2) % Eos # (Auto) 0.11 (0.04-0.54) x10^3/uL Immature Gran # (Auto) 0.04 H (0.001-0.031) x10^3u/L Absolute Lymphs (auto) 2.20 (1.32-3.57) x10^3/uL Absolute Monos (auto) 0.83 H (0.30-0.82) x10^3/uL Absolute Nucleated RBC 0.00 (0.00-0.012) x10^3u/L Lymphocytes % 13.3 L (21.8-53.1) % Monocytes % 5.0 L (5.3-12.2) % Eosinophils % 0.7 L (0.8-7.0) % Basophils % 0.2 (0.2-1.2) % Absolute Granulocytes 13.30 H (1.78-5.38) x10^3/uL Basophils # 0.04 (0.01-0.08) x10^3/uL Sodium 138 (135-145) mmol/L Potassium 4.0 (3.5-5.1) mmol/L Chloride 105 (98-107) mmol/L Carbon Dioxide 25 (22-30) mmol/L Anion Gap 11.3 (5-15) MEQ/L BUN 15 (9-20) mg/dL Creatinine 1.05 (0.66-1.25) mg/dL Estimated GFR 101.7 ML/MIN Glucose 126 H (74-106) mg/dL Calcium 9.1 (8.4-10.2) mg/dL Total Bilirubin 0.40 (0.2-1.3) mg/dL AST 55 (17-59) U/L ALT 71 H (0-50) U/L Alkaline Phosphatase 66 (38-126) U/L Serum Total Protein 6.8 (6.3-8.2) g/dL Albumin 4.6 (3.5-5.0) g/dL Lipase 82 (23-300) U/L - Progress Progress: improved, re-examined Progress Note: 11/16/24 02:03 23-year-old is evaluated in the ER for sudden onset abdominal pain nausea vomiting and diarrhea with feeling of weak fatigue tiredness and dehydration. He is given fluids and symptomatic treatment with Pepcid/Zofran along with fluids, on reevaluation is feeling much improved. Workup showed white count of 16, chemistries fairly unremarkable. Abdominal exam on repeated evaluation has no peritoneal signs. I believe patient's symptoms are viral etiology, do not think needs imaging or any other workup. I would give him Zofran to go home. Discussed signs symptoms of worsening needing return to ER which he seems understanding. Stable for discharge. Counseled pt/family regarding: lab results, diagnosis, need for follow-up Medical Desision Making - Diagnostic Testing Diagnostic test were ordered, analyzed, and reviewed by me: Yes - Risk of complications The pt has a mod risk of morbidity or mortality based on: Need for prescription drug management - Departure Clinical Impression: Viral syndrome, Gastroenteritis Condition: Stable Critical Care Time: No Referrals: ANÍBAL UMANA DO [ACTIVE STAFF] - Follow up with PCP 1 day Instructions: Viral gastroenteritis in adults Additional Instructions: Plenty of fluids. Take Tylenol/Zofran as needed. Follow-up with primary care for reevaluation. Return to ER for intractable nausea vomiting diarrhea/abdominal pain or if develop fever chills etc. Prescriptions: Ondansetron ODT 4 MG [Zofran Odt 4 mg] 1 ea PO QIDPRN PRN #7 tablet PRN Reason: n/v
[2024-11-16 00:54] LABS: ALBUMIN 4.6 g/dL (3.5-5.0); ANION GAP 11.3 MEQ/L (5-15); BILIRUBIN,TOTAL 0.4 mg/dL (0.2-1.3); Calcium 9.1 mg/dL (8.4-10.2); Creatinine 1 1.05 mg/dL (0.66-1.25); EST GLOMERULAR FILTRATION RATE 101.7 ML/MIN; Total Protein 6.8 g/dL (6.3-8.2)
[2024-11-16] MEDS ORDERED: ZOFRAN ODT 4 MG ONE (01:11)
[2024-11-16] MEDS: ZOFRAN ODT 4 MG PO ONE (01:13)
[2024-11-16 01:17] LABS: INFLUENZA A NEGATIVE (NEGATIVE); INFLUENZA B NEGATIVE (NEGATIVE); RESPIRATORY SYNCTIAL VIRUS NEGATIVE (NEGATIVE); SARS-CoV-2 Xpert Express NEGATIVE (NEGATIVE)
[2024-11-16 01:33] VITALS: BP 102/66; PULSE 95; O2SAT 97
== END 2024-11-16 01:52 | disposition home or self-care (01) ==
LOC: ED 00:07
DX: K52.9 Noninfective gastroenteritis and colitis, unspecified (principal); R11.2 Nausea with vomiting, unspecified; R19.7 Diarrhea, unspecified; R10.9 Unspecified abdominal pain; E86.0 Dehydration; R53.1 Weakness; B34.9 Viral infection, unspecified
CPT/HCPCS: 0241U; 36415; 80053; 83690; 85025; 96360; 96374; 96375; 99284; J2405; Q0162

== ENCOUNTER 2024-11-18 09:24 | Emergency (ER) | payer MEDICAID, OTHER ==
[2024-11-18 10:11] VITALS: BP 148/90; PULSE 83; RESP 20; O2SAT 97
--- NOTE | 2024-11-18 10:12 | ERPHSYRPT ---
- History of Present Illness Time Seen by Provider: 11/18/24 10:08 Source: patient Exam Limitations: no limitations Physician History: 23-year-old male presents to emergency department for evaluation of nausea vomiting abdominal pain and diarrhea.. Patient was in our ED 2 days ago for the same. Patient states symptoms have not significantly improved. However he did not get a CAT scan at that time. Pain described as an ache that is periumbilical. Pain is intermittent. Vomiting is nonbloody nonbilious. Symptoms are mild to moderate in intensity. No specific worsening or improving factors. Patient otherwise feels well. He voices no other complaints or alysia rns at this time. Portions of this note were created with voice recognition technology. There may be grammatical, spelling, punctuation or sound alike errors Timing/Duration: today Severity: moderate Modifying Factors: Improves With: nothing Associated Symptoms: nausea, vomiting, abdominal pain Allergies/Adverse Reactions: amoxicillin Allergy (Verified 11/18/24 10:11) Home Medications: No Reportable Medications [No Reported Medications] 11/18/24 [History] Hx Tetanus, Diphtheria Vaccination/Date Given: No Hx Influenza Vaccination/Date Given: No Hx Pneumococcal Vaccination/Date Given: No Travel Risk - Emerging Infectious Disease Are you exhibiting symptoms associated with any current EIDs: Yes Symptoms: Abdominal Pain, Diarrhea, Vomitting - Review of Systems Constitutional: No Symptoms, No Fever, No Chills Eyes: No Symptoms Ears, Nose, & Throat: No Symptoms Respiratory: No Symptoms, No Cough, No Dyspnea Cardiac: No Symptoms, No Chest Pain, No Edema, No Syncope Abdominal/Gastrointestinal: No Symptoms, No Abdominal Pain, No Nausea, No Vomiting, No Diarrhea Genitourinary Symptoms: No Symptoms, No Dysuria Musculoskeletal: No Symptoms, No Back Pain, No Neck Pain Skin: No Symptoms, No Rash Neurological: No Symptoms, No Dizziness, No Focal Weakness, No Sensory Changes Psychological: No Symptoms Endocrine: No Symptoms Hematologic/Lymphatic: No Symptoms Immunological/Allergic: No Symptoms All Other Systems: Reviewed and Negative - Past Medical History Pertinent Past Medical History: No - Past Surgical History Past Surgical History: No - Social History Smoking Status: Smoker, status unknown Exposure to second hand smoke: No Drug Use: none - Social Determinants of Health Will the patient participate in the screening: Yes Do you worry about a steady place to live?: No In the past 12 months,have you had to go without utilities?: No Transportation Issues: No Has anyone in your support network made you feel unsafe?: No Have you or anyone in your house had to go without enough: No - Nursing Vital Signs Nursing Vital Signs: Initial Vital Signs Temperature 97 F 11/18/24 10:04 Pulse Rate 83 11/18/24 10:04 Respiratory Rate 20 11/18/24 10:04 Blood Pressure 148/90 11/18/24 10:04 O2 Sat by Pulse Oximetry 97 11/18/24 10:04 Pain Scale Pain Intensity 3 - Physical Exam General Appearance: no apparent distress, alert Eye Exam: PERRL/EOMI, eyes nml inspection Ears, Nose, Throat Exam: normal ENT inspection, TMs normal, pharynx normal, moist mucous membranes Neck Exam: normal inspection, non-tender, supple, full range of motion Respiratory Exam: normal breath sounds, lungs clear, airway intact, No respiratory distress Cardiovascular Exam: regular rate/rhythm, normal heart sounds, normal peripheral pulses Gastrointestinal/Abdomen Exam: soft, normal bowel sounds, tenderness (Mild periumbilical tenderness), No mass Back Exam: normal inspection, normal range of motion, No CVA tenderness, No vertebral tenderness Extremity Exam: normal inspection, normal range of motion, pelvis stable Neurologic Exam: alert, oriented x 3, cooperative, normal mood/affect, sensation nml, No motor deficits Skin Exam: normal color, warm, dry, No rash Lymphatic Exam: No adenopathy SpO2 Interpretation: normal O2 Delivery: Room Air - Course Nursing assessment & vital signs reviewed: Yes - CT Exams Abdomen/Pelvis CT Interpretation: Tele-radiologist Report (Right nephrolithiasis, fatty liver) Ordered Tests: Active Orders 24 hr Category Date Time Status IV Insertion STAT Care 11/18/24 10:06 Active ABDOMEN AND PELVIS W/0 CONTRAS [CT] Stat Exams 11/18/24 10:06 Completed CBC W DIFF Stat Lab 11/18/24 10:15 Completed CMP Stat Lab 11/18/24 10:15 Completed LIPASE Stat Lab 11/18/24 10:15 Completed TROPONIN Q4H Lab 11/18/24 10:15 Completed TROPONIN Q4H Lab 11/18/24 14:15 Ordered TROPONIN Q4H Lab 11/18/24 18:15 Ordered UA W/RFX UR CULTURE Stat Lab 11/18/24 10:51 Completed Medication Summary Discontinued Medications Generic Name Dose Route Start Last Admin Trade Name Ashwini PRN Reason Stop Dose Admin Sodium Chloride 1,000 mls @ 999 mls/hr 11/18/24 10:06 11/18/24 11:43 Sodium Chloride 0.9% 1000 Ml IV 11/18/24 11:06 Infused .Q1H1M STA Infusion Sodium Chloride Confirm 11/18/24 10:30 Sodium Chloride 0.9% 1000 Ml Administered 11/18/24 10:31 Dose 1,000 mls @ ud .ROUTE .STK-MED ONE Ketorolac Tromethamine 30 mg 11/18/24 10:06 11/18/24 10:35 Ketorolac Tromethamine 30 Mg/Ml Inj IV 11/18/24 10:07 Not Given STAT ONE Ketorolac Tromethamine Confirm 11/18/24 10:30 Ketorolac Tromethamine 30 Mg/Ml Inj Administered 11/18/24 10:31 Dose 30 mg .ROUTE .STK-MED ONE Ondansetron HCl 4 mg 11/18/24 10:06 11/18/24 10:33 Ondansetron Hcl 4 Mg/2 Ml Vial IV 11/18/24 10:07 Not Given STAT ONE Ondansetron HCl Confirm 11/18/24 10:30 Ondansetron Hcl 4 Mg/2 Ml Vial Administered 11/18/24 10:31 Dose 4 mg .ROUTE .STK-MED ONE Lab/Rad Data: Laboratory Result Diagrams 11/18/24 10:15 11/18/24 10:15 Laboratory Results 11/18/24 11/18/24 11/18/24 Range/Units 10:51 10:15 10:15 WBC (4.23-9.07) x10^3/uL RBC (4.63-6.08) x10^6/uL Hgb (13.7-17.5) g/dL Hct (40.1-51.0) % MCV (79.0-92.2) fL MCH (25.7-32.2) pg MCHC (32.3-36.5) g/dL RDW (11.6-14.4) % Plt Count (163-337) x10^3/uL MPV (9.4-12.4) fL Gran % (34.0-67.9) % Immature Gran % (Auto) (0.001-0.429) % Nucleat RBC Rel Count (0.00-0.2) % Eos # (Auto) (0.04-0.54) x10^3/uL Immature Gran # (Auto) (0.001-0.031) x10^3u/L Absolute Lymphs (auto) (1.32-3.57) x10^3/uL Absolute Monos (auto) (0.30-0.82) x10^3/uL Absolute Nucleated RBC (0.00-0.012) x10^3u/L Lymphocytes % (21.8-53.1) % Monocytes % (5.3-12.2) % Eosinophils % (0.8-7.0) % Basophils % (0.2-1.2) % Absolute Granulocytes (1.78-5.38) x10^3/uL Basophils # (0.01-0.08) x10^3/uL Sodium 139 (135-145) mmol/L Potassium 4.2 (3.5-5.1) mmol/L Chloride 106 (98-107) mmol/L Carbon Dioxide 26 (22-30) mmol/L Anion Gap 10.8 (5-15) MEQ/L BUN 8 L (9-20) mg/dL Creatinine 1.04 (0.66-1.25) mg/dL Estimated GFR 102.8 ML/MIN Glucose 94 (74-106) mg/dL Calcium 9.3 (8.4-10.2) mg/dL Total Bilirubin 0.40 (0.2-1.3) mg/dL AST 60 H (17-59) U/L ALT 64 H (0-50) U/L Alkaline Phosphatase 62 (38-126) U/L Troponin I < 0.012 (0.000-0.033) ng/mL Serum Total Protein 6.4 (6.3-8.2) g/dL Albumin 4.3 (3.5-5.0) g/dL Lipase 75 (23-300) U/L Urine Color Yellow (Yellow) Urine Appearance Clear (Clear) Urine pH 6.0 (4.6-8.0) Ur Specific Red[place] 1.025 (1.005-1.030) Urine Protein Negative (Negative) Urine Glucose (UA) Negative (Negative) mg/dL Urine Ketones 15 A (Negative) Urine Blood Negative (Negative) Urine Nitrite Negative (Negative) Urine Bilirubin Negative (Negative) Urine Urobilinogen 0.2 (0.2) mg/dL Ur Leukocyte Esterase Negative (Negative) U Hyaline Cast (Auto) NONE SEEN (0-2) /LPF Urine Microscopic RBC 0-2 (0-5) /HPF Urine Microscopic WBC 0-2 (0-5) /HPF Ur Epithelial Cells None Seen (None Seen) /HPF Urine Bacteria None Seen (None Seen) /HPF Urine Culture Reflexed NO (NO) 11/18/24 Range/Units 10:15 WBC 7.3 (4.23-9.07) x10^3/uL RBC 5.33 (4.63-6.08) x10^6/uL Hgb 15.5 (13.7-17.5) g/dL Hct 45.9 (40.1-51.0) % MCV 86.1 (79.0-92.2) fL MCH 29.1 (25.7-32.2) pg MCHC 33.8 (32.3-36.5) g/dL RDW 12.8 (11.6-14.4) % Plt Count 266 (163-337) x10^3/uL MPV 9.9 (9.4-12.4) fL Gran % 57.5 (34.0-67.9) % Immature Gran % (Auto) 0.1 (0.001-0.429) % Nucleat RBC Rel Count 0.0 (0.00-0.2) % Eos # (Auto) 0.09 (0.04-0.54) x10^3/uL Immature Gran # (Auto) 0.01 (0.001-0.031) x10^3u/L Absolute Lymphs (auto) 2.21 (1.32-3.57) x10^3/uL Absolute Monos (auto) 0.78 (0.30-0.82) x10^3/uL Absolute Nucleated RBC 0.00 (0.00-0.012) x10^3u/L Lymphocytes % 30.2 (21.8-53.1) % Monocytes % 10.7 (5.3-12.2) % Eosinophils % 1.2 (0.8-7.0) % Basophils % 0.3 (0.2-1.2) % Absolute Granulocytes 4.20 (1.78-5.38) x10^3/uL Basophils # 0.02 (0.01-0.08) x10^3/uL Sodium (135-145) mmol/L Potassium (3.5-5.1) mmol/L Chloride (98-107) mmol/L Carbon Dioxide (22-30) mmol/L Anion Gap (5-15) MEQ/L BUN (9-20) mg/dL Creatinine (0.66-1.25) mg/dL Estimated GFR ML/MIN Glucose (74-106) mg/dL Calcium (8.4-10.2) mg/dL Total Bilirubin (0.2-1.3) mg/dL AST (17-59) U/L ALT (0-50) U/L Alkaline Phosphatase (38-126) U/L Troponin I (0.000-0.033) ng/mL Serum Total Protein (6.3-8.2) g/dL Albumin (3.5-5.0) g/dL Lipase (23-300) U/L Urine Color (Yellow) Urine Appearance (Clear) Urine pH (4.6-8.0) Ur Specific Redmon (1.005-1.030) Urine Protein (Negative) Urine Glucose (UA) (Negative) mg/dL Urine Ketones (Negative) Urine Blood (Negative) Urine Nitrite (Negative) Urine Bilirubin (Negative) Urine Urobilinogen (0.2) mg/dL Ur Leukocyte Esterase (Negative) U Hyaline Cast (Auto) (0-2) /LPF Urine Microscopic RBC (0-5) /HPF Urine Microscopic WBC (0-5) /HPF Ur Epithelial Cells (None Seen) /HPF Urine Bacteria (None Seen) /HPF Urine Culture Reflexed (NO) - Progress Progress: improved Progress Note: 23-year-old male presents to our ED for evaluation of nausea vomiting diarrhea. Patient had some periumbilical pain as well. Physical exam otherwise unremarkable. Laboratory workup essentially within normal limits. CT abdomen pelvis reveals a fatty liver. Patient reassessed. He is pain-free. Patient resting comfortably. No active abdominal pain no diarrhea no rash no vomiting while in our ED. No indication for further workup. IV fluids infused. Patient feels well and states he is ready for discharge. Patient does not have a primary care doctor to follow-up with. He was referred to Dr. Price for follow- up. Will discharge home. Patient agrees to follow-up with Dr. Price within 48 hours for reevaluation. Patient voices no other complaints or concerns at this time. Portions of this note were created with voice recognition technology. There may be grammatical, spelling, punctuation or sound alike errors Complexity of problem addressed is moderate acute complicated no critical care time. Complexity of data reviewed and analyzed is moderate. Test ordered chest reviewed results analyzed and correlated clinically with history and physical exam. Risk of complication and or risk of morbidity/mortality of patient management is low. Vital stable. Time spent to discharge patient is approximately 15 minutes. Plan of care established for shared decision making. No social determinants of health present to impede follow-up. Portions of this note were created with voice recognition technology. There may be grammatical, spelling, punctuation or sound alike errors 11/18/24 11:57 Counseled pt/family regarding: lab results, diagnosis, need for follow-up, rad results - Departure Departure Disposition: Home Clinical Impression: Nausea & vomiting, Abdominal pain, Fatty liver, Right nephrolithiasis, Diarrhea Condition: Stable Critical Care Time: No Referrals: DOCTOR,NO FAMILY [Primary Care Provider] - Follow up/PCP as directed ROLF PRICE MD [ACTIVE STAFF] - Follow up/PCP as directed Additional Instructions: Discharge/Care Plan LALIT LOMBARDI was seen on 11/18/24 in the Emergency Room. The patient was counseled regarding Diagnosis,Lab results, Imaging studies, need for follow up and when to return to the Emergency Room. Prescriptions given: Discharge Note I have spoken with the patient and/or caregivers. I have explained the patient's condition, diagnosis and treatment plan based on the information available to me at this time. I have answered the patient's and/or caregiver's questions and addressed any concerns. The patient and/or caregivers have as good understanding of the patient's diagnosis, condition and treatment plan as can be expected at this point. The vital signs have been stable. The patient's condition is stable and appropriate for discharge from the emergency department. The patient will pursue further outpatient evaluation with the primary care physician or other designated or consulting physician as outlined in the discharge instructions. The patient and/or caregivers are agreeable to this plan of care and follow-up instructions have been explained in detail. The patient and/or caregivers have received these instruction. The patient/and or caregivers are aware that any significant change in condition or worsening of symptoms should prompt an immediate return to this or the closest emergency department or call 911.
[2024-11-18 10:13] VITALS: TEMP 97
[2024-11-18 10:28] LABS: BASOPHIL % 0.3 % (0.2-1.2); Basophil (Absolute #) 0.02 x10^3/uL (0.01-0.08); Eosinophil % 1.2 % (0.8-7.0); Eosinophil (Absolute #) 0.09 x10^3/uL (0.04-0.54); Hematocrit 45.9 % (40.1-51.0); Hemoglobin 15.5 g/dL (13.7-17.5); IMMATURE GRAN # 0.01 x10^3u/L (0.001-0.031); IMMATURE GRAN % 0.1 % (0.001-0.429); Lymphocyte (Absolute #) 2.21 x10^3/uL (1.32-3.57); Lymphocytes % 30.2 % (21.8-53.1); Mean Cell Volume 86.1 fL (79.0-92.2); Mean Corpuscular Hemoglobin 29.1 pg (25.7-32.2); Mean Corpuscular Hgb Concent. 33.8 g/dL (32.3-36.5); Mean Platelet Volume 9.9 fL (9.4-12.4); Monocyte (Absolute #) 0.78 x10^3/uL (0.30-0.82); Monocytes % 10.7 % (5.3-12.2); Neutrophil % 57.5 % (34.0-67.9); Platelet Count 266 x10^3/uL (163-337); Red Blood Count 5.33 x10^6/uL (4.63-6.08); Red Cell Distribution Width 12.8 % (11.6-14.4); White Blood Count 7.3 x10^3/uL (4.23-9.07)
[2024-11-18] MEDS ORDERED: TORAdol 30 mg Injection ONE (10:30)
[2024-11-18] MEDS ORDERED: Zofran 4 MG/2 ML VIAL ONE (10:30)
[2024-11-18] MEDS ORDERED: Sodium Chloride 0.9% 1000 ML 1,000 ML ONE (10:30)
[2024-11-18] MEDS: Sodium Chloride 0.9% 1000 ML 1,000 ML IV STA (10:32)
[2024-11-18] MEDS: Zofran 4 MG/2 ML VIAL IV ONE (10:33)
[2024-11-18] MEDS: TORAdol 30 mg Injection IV ONE (10:35)
[2024-11-18 10:39] LABS: ALBUMIN 4.3 g/dL (3.5-5.0); ANION GAP 10.8 MEQ/L (5-15); BILIRUBIN,TOTAL 0.4 mg/dL (0.2-1.3); Calcium 9.3 mg/dL (8.4-10.2); Creatinine 1 1.04 mg/dL (0.66-1.25); EST GLOMERULAR FILTRATION RATE 102.8 ML/MIN; Potassium 4.2 mmol/L (3.5-5.1); Total Protein 6.4 g/dL (6.3-8.2)
[2024-11-18 11:17] LABS: Appearance Clear (Clear); Bacteria None Seen /HPF (None Seen); Bilirubin Negative (Negative); Blood Negative (Negative); Epithelial Cells None Seen /HPF (None Seen); Glucose, Urine Negative (Negative); Hyaline Casts NONE SEEN /LPF (0-2); Ketones 15 (Negative); Leukocyte Esterase Negative (Negative); Nitrite Negative (Negative); Protein,Urine Dip Negative (Negative); RBC 0-2 /HPF (0-5); Specific Gravity 1.025 (1.005-1.030); Urobilinogen 0.2 mg/dL (0.2); WBC 0-2 /HPF (0-5)
--- NOTE | 2024-11-18 11:40 | XRAY ---
Indication: Pain, nausea, vomiting, diarrhea. Multiple contiguous axial images obtained through the abdomen and pelvis without contrast. Comparison: None Lung bases clear. Heart not enlarged. Noncontrasted stomach and bowel loops appear nonobstructed with normal appendix. 21 cm fatty hepatomegaly. Nonobstructing renal punctate calculus. No free fluid/air. Remaining liver, gallbladder, pancreas, spleen, adrenal glands, kidneys, ureters, bladder, and aorta are unremarkable for noncontrast exam. Osseous structures intact. No ventral or inguinal hernias. Impression: Fatty hepatomegaly. Nonobstructing right renal punctate calculus. Remaining CT abdomen/pelvis without contrast exam is normal.
== END 2024-11-18 12:16 | disposition home or self-care (01) ==
LOC: ED 09:24
DX: R11.2 Nausea with vomiting, unspecified (principal); R19.7 Diarrhea, unspecified; R10.9 Unspecified abdominal pain; K76.0 Fatty (change of) liver, not elsewhere classified
CPT/HCPCS: 36415; 74176; 80053; 81001; 83690; 84484; 85025; 96360; 96374; 99284; J1885; J2405